=== PATIENT | male | born 1995 | race Caucasian/White ===

== ENCOUNTER 2020-02-04 14:46 | Inpatient (IN) ==
[2020-02-04 15:27] LABS: Bilirubin,Urine Negative (Negative); Blood,Urine Negative (Negative); Clarity,Urine Clear (Clear); Color,Urine Yellow (Yellow); Glucose,Urine (UA) Normal (Normal); Ketones,Urine Negative (Negative); Leukocyte Esterase,Urine Negative (Negative); Nitrite,Urine Negative (Negative); Protein,Urine Trace mg/dL (Neg-Trace); Specific Gravity,Urine 1.027 (1.010-1.025); Urobilinogen,Urine Normal (Normal)
[2020-02-04 15:49] LABS: Amphetamine Screen,Urine Negative ng/mL (Cutoff=1000); Barbiturate Screen,Urine Negative ng/mL (Cutoff=200); Benzodiazepines Screen,Urine Negative ng/mL (Cutoff=200); Cannabinoid Screen,Urine Positive ng/mL (Cutoff = 50); Cocaine Screen,Urine Negative ng/mL (Cutoff= 300); Opiate Screen,Urine Negative ng/mL (Cutoff=300); Phencyclidine Screen,Urine Negative ng/mL (Cutoff=25)
[2020-02-04 15:49] LABS: Acetaminophen < 10 mcg/mL (10-20); BUN/Creatinine Ratio 11 (6-26); Blood Urea Nitrogen 12 mg/dL (6-20); Calcium 9.8 mg/dL (8.6-10.3); Carbon Dioxide 22 mEq/L (23-29); Chloride 105 mEq/L (98-107); Chol/HDL Ratio 4.5 (0-4.9); Cholesterol 208 mg/dL (< 200); Ethanol < 10 mg/dL (Less than 10); Glucose 115 mg/dL (70-105); HDL Cholesterol 46 mg/dL (40-59); LDL Cholesterol,Calculated 140 mg/dL (< 100); Osmolality,Calculated 285 (280-300); Potassium 3.9 mEq/L (3.5-5.1); Salicylate < 2.5 mg/dL (15.0-30.0); Sodium 137 mEq/L (136-145); Triglycerides 110 mg/dL (< 150); eGFR For African Americans > 60 (> 60); eGFR For Non-African Americans > 60 (> 60)
[2020-02-04 16:07] LABS: Basophils # 0.1 K/mcL (0.0-0.2); Basophils % 0.6 %; Eosinophils # 1.3 K/mcL (0.0-0.6); Hematocrit 48.5 % (37.5-50.1); Hemoglobin 16.5 g/dL (12.9-16.9); Immature Granulocytes % 0.3 % (0-4); Lymphocytes # 2.1 K/mcL (0.6-4.6); Lymphocytes % 14.4 %; Mean Corpuscular Hemoglobin 30.1 pg (28.0-33.3); Mean Corpuscular Volume 88.5 fL (83.0-100.0); Mean Platelet Volume 9.6 fL (9.4-12.4); Monocytes # 0.5 K/mcL (0.0-1.3); Monocytes % 3.3 %; Neutrophils # 10.4 K/mcL (1.6-8.9); Platelet Count 262 K/mcL (140-400); Red Blood Count 5.48 M/mcL (4.19-5.50); Red Cell Distribution Width 12.3 % (11.5-14.5); Segmented Neutrophils % 72.4 %; White Blood Count 14.4 K/mcL (4.3-11.1)
[2020-02-04 17:14] LABS: Estimated Average Glucose 103 mg/dl; Hemoglobin A1C 5.2 %
[2020-02-04] MEDS ORDERED: Mag Hydrox/Al Hydrox/Simeth 30 ML UDC PO PRN (19:20)
[2020-02-04] MEDS ORDERED: Haloperidol Lactate 5 MG/ML VIAL IM PRN (19:20)
[2020-02-04] MEDS ORDERED: Acetaminophen 325 MG TABLET PO PRN (19:20)
[2020-02-04] MEDS ORDERED: traZODone 50 MG TABLET PO PRN (19:20)
[2020-02-04] MEDS ORDERED: MOM Conc 10 ML UD.LIQ PO PRN (19:20)
[2020-02-04] MEDS ORDERED: *HR* LORazepam 2 MG/ML VIAL IM PRN (19:20)
[2020-02-04] MEDS ORDERED: *HR* LORazepam 1 MG TABLET PO PRN (19:20)
[2020-02-04] MEDS ORDERED: hydrOXYzine pamoate 25 MG CAPSULE PO PRN (19:20)
[2020-02-04] MEDS ORDERED: haloperidoL 5 MG TABLET PO PRN (19:20)
[2020-02-05 10:53] VITALS: BP 144/87
== END 2020-02-05 14:15 | disposition home or self-care (01) | DRG 751 ==
LOC: EMEROOARM 14:46 → 1ANU 19:04
PROVIDERS: ADMIT Psychiatry & Neurology Forensic Psychiatry; ATTEND Psychiatry & Neurology Forensic Psychiatry